=== PATIENT | female | born 1960 | race Hispanic/Latino ===

== ENCOUNTER → 2017-07-05 | Day surgery (SDC) | payer BC ==
[~2017-07-05] MED LIST: ALLERGY MEDICATION; AMOXICILLIN250 MG PO; FENTANYL CITRATE/PF 100MCG/2 ML INJ ONE; HUMALOG100 UNITS/ SQ; INSULIN REGULAR, HUMAN 100 UNIT/1 ML 3ML VIAL ONE; LEVEMIR100 UNIT/1 SQ; METFORMIN HCL500 MG PO; MIDAZOLAM HCL 2 MG/2 ML VIAL ONE; NEURONTIN100 MG PO; NOVOLOG MI100 UNIT/1; OR PHACO EYE KIT ONE; PREOP PHACO EYE KIT ONE
--- OUTSIDE RECORDS SUMMARY | 2017-07-05 09:54 | XMS REPORT | Clinical Summary ---
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 Disp. Refills Start End Date Status Date metFORMIN XR Take 500 mg by mouth 2 Active (GLUCOPHATE-XR) 500 MG 24 (two) times a day. hr tablet ibuprofen (ADVIL,MOTRIN) Take 200 mg by mouth Active 200 MG tablet every 6 (six) hours as needed for mild pain. insulin asp prt-insulin Inject 35 Units under the Active ASPART (NovoLOG 70/30) skin 2 (two) times a day 100 unit/mL (70-30) after meals. injection docusate sodium (COLACE) Take 100 mg by mouth 2 Active 100 MG capsule (two) times a day. cetirizine (ZyrTEC) 10 MG Take 10 mg by mouth Active tablet daily. atorvastatin (LIPITOR) 40 Take 40 mg by mouth every 01/15/20 Discontin MG tablet morning. 17 ued insulin NPH and regular Inject 35 Units under the 01/20/20 Discontin human (HumuLIN 70/30) 100 skin 2 (two) times a day. 17 ued unit/mL (70-30) injection aspirin (ECOTRIN) 81 MG Take 81 mg by mouth every 01/15/20 Discontin enteric coated tablet morning. 17 ued Active Problems No known active problems Encounters Date Type Specialty Care Team Description 03/30/2017 [facility] Aldo Nuno MD Encounter 03/30/2017 Anesthesia Plastic Surgery Aki Dodge MD Event 03/30/2017 Procedure Pass Plastic Surgery 03/30/2017 Surgery Plastic Surgery Aldo Nuno MD VITRECTOMY, AIR- FLUID EXCHANGE, RIGHT EYE 03/09/2017 Hospital Plastic Surgery Aldo Nuno MD Encounter 03/09/2017 Anesthesia Plastic Surgery Lisbeth Nuno MD Event 03/09/2017 Procedure Pass Plastic Surgery 03/09/2017 Surgery Plastic Surgery Aldo Nuno MD VITRECTOMY, MEMBRANE PEEL, ENDOCAUTERY, ENDOLASER, FLUID AIR EXCHANGE, 10% C3F8 GAS INJECTION, RIGHT EYE 01/19/2017 Hospital Plastic Surgery Aldo Nuno MD Encounter 01/19/2017 Anesthesia Plastic Surgery Mini Jamil MD Event 01/19/2017 Procedure Pass Plastic Surgery 01/19/2017 Surgery Plastic Surgery Aldo Nuno MD VITRECTOMY, MEMBRANECTOMY,,AIR-FLUID EXCHANGE,ENDOLASER,C3F8 GAS INJECTION(14%), LEFT EYE 01/14/2017 Pre-Admit Pre-Admission Testing Aldo Nuno MD Preop testing (Primary Testing Dx) Appointment 01/14/2017 Anesthesia Pre-Admission Testing Yessica Pearson Event 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, 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 Social History Tobacco Use Types Packs/Day Years Used Date Never Smoker Smokeless Tobacco: Never Used Alcohol Use Drinks/Week oz/Week Comments No Sex Assigned at Date Recorded Not on file Last Filed Vital Signs Vital Sign Reading Time Taken Blood Pressure 116/62 03/30/2017 12:36 PM [employer] Pulse 81 03/30/2017 12:36 PM [employer] Temperature 36.4 C (97.6 F) 03/30/2017 12:15 PM [employer] Respiratory Rate 18 03/30/2017 12:36 PM [employer] Oxygen Saturation 98% 03/30/2017 12:15 PM [employer] Inhaled Oxygen - - Concentration Weight 78.5 kg (173 lb) 03/09/2017 8:15 AM CDT Height 165.1 cm (5' 5") 03/30/2017 8:31 AM [employer] Body Mass Index 28.79 03/09/2017 8:15 AM CDT Plan of Treatment Health Maintenance Due Date Last Done Comments PAP SMEAR 10/02/1983 COLONOSCOPY 2012 MAMMOGRAM 2012 INFLUENZA VACCINE 12/14/2016 Procedures Procedure Name Priority Date/Time Associated Diagnosis Comments VITRECTOMY, AIR-FLUID 03/30/2017 Vitreous hemorrhage, EXCHANGE, RIGHT EYE 10:45 AM [employer] right eye ANESTHESIA PERIPHERAL Routine 03/09/2017 BLOCK 11:30 AM CDT Procedure Note - Varsha Jerez MD - 03/09/2017 11:29 AM CDT Peripheral Block Performed by: VARSHA JEREZ Authorized by: VARSHA JEREZ Patient Location: Pre-op Start Time: 03/09/2017 11:17 AM End Time: 03/09/2017 11:18 AM Reason for Block: at surgeon's request, block performed by Dr. Nuno Staff: Anesthesio logist: VARSHA JEREZ Performed by: Anesthesio logist Preprocedu re: patient identified , IV checked, site and side verified, risks and benefits discussed, procedure verified, surgical consent complete, patient position confirmed, monitors and equipment checked, pre-op evaluation complete and site marked Time Out Performed: 11:14 AM Peripheral Nerve Block: Patient Position: Supine Prep: alcohol swabs Monitoring : Heart rate, continuous pulse oximetry and blood pressure monitoring Block Type: Retrobulba r Laterality : Right Injection Technique: Single injection Assessment : Injection Assessment : No symptoms of intraneura l/intraven ous injection Paresthesi a Pain: None Heart Rate Change: No Block outcome: No apparent complicati ons, patient comfortabl e and patient tolerated procedure well VITRECTOMY, MEMBRANE 03/09/2017 TRD (traction retinal PEEL, ENDOCAUTERY, 9:45 AM CDT detachment), right ENDOLASER, FLUID AIR EXCHANGE, 10% C3F8 GAS INJECTION, RIGHT EYE VITRECTOMY, 01/19/2017 Retinal defect with MEMBRANECTOMY,,AIR-FLUID 1:15 PM CDT detachment, left EXCHANGE,ENDOLASER,C3F8 GAS INJECTION(14%), LEFT EYE after 07/04/2016 Results * POC glucose (03/30/2017 12:14 PM) Only the most recent of 4 results within the time period is included. Component Value Ref Range POC glucose 180 (H) 65 - 99 mg/dL Comment: [facility] Notified RN Meter ID: [id number] Meat Department Manager: ELA RIZO Specimen Performing Laboratory [facility] DEPARTMENT OF PATHOLOGY AND GENOMIC MEDICINE [address] [place] [id number] * ECG Pre/Post Op (01/14/2017 9:13 AM) Component Value Ref Range Ventricular rate 77 Atrial rate 77 WY interval 122 QRSD interval 82 QT interval 410 QTC interval 463 P axis 1 51 QRS axis 1 5 T wave axis 19 EKG impression Normal sinus rhythm-Normal ECG-In automated comparison with ECG of 15-DEC-2015 14:18,-No significant change was found- Specimen Performing Laboratory [facility] MUSE [address] [place] [id number] * Estimated GFR (01/14/2017 8:59 AM) Component Value Ref Range GFR Non Af Amer >90 mL/min/1.73 m2 GFR Af Amer >90 mL/min/1.73 m2 Comment: Chronic kidney disease: <60 mL/min/1.73m2 Kidney failure: <15 mL/min/1.73m2 The estimated GFR is calculated from the IDMS-traceable Modification of Diet in Renal Disease Equation. The accuracy of the calculation is poor when the creatinine is normal. Calculated values >90 mL/min/1.73m2 are not reported. This equation has not been validated in children (<18 years), women, the elderly (>70 years), or ethnic groups other than Caucasians and Americans. Specimen Performing Laboratory Plasma specimen [facility] DEPARTMENT OF PATHOLOGY AND GENOMIC MEDICINE [address] [place] [id number] * CBC with platelet and differential (01/14/2017 8:59 AM) Component Value Ref Range WBC 6.96 4.50 - 11.00 k/uL RBC 4.36 4.20 - 5.50 m/uL HGB 12.9 12.0 - 16.0 g/dL HCT 38.7 37.0 - 47.0 % MCV 88.8 82.0 - 100.0 fL MCH 29.6 27.0 - 34.0 pg MCHC 33.3 31.0 - 37.0 g/dL RDW - SD 43.8 37.0 - 55.0 fL MPV 14.3 (H) 8.8 - 13.2 fL Platelet count 155 150 - 400 k/uL Nucleated RBC 0.00 /100 WBC Neutrophils 47.9 39.0 - 69.0 % Lymphocytes 44.7 25.0 - 45.0 % Monocytes 4.6 0.0 - 10.0 % Eosinophils 1.7 0.0 - 5.0 % Basophils 0.7 0.0 - 1.0 % Immature granulocytes 0.4Comment: "Immature granulocytes" 0.0 - 1.0 % (promyelocytes, myelocytes, metamyelocytes) Specimen Performing Laboratory Blood [facility] DEPARTMENT OF PATHOLOGY AND GENOMIC MEDICINE [address] [place] [id number] * Hemoglobin A1c (01/14/2017 8:59 AM) Component Value Ref Range Hemoglobin A1C 9.1 (H) 4.0 - 5.6 % Comment: HbA1c cutoffs for diagnosing diabetes: 4.0% - 5.6%=normal 5.7% - 6.4%=increased risk for diabetes (prediabetes) >=6.5%=diabetes Goals for glycemic control (ADA 2016) < 7.0% Target for non adults with diabetes. More or less stringent targets may be appropriate for individual patients. <7.5% Target for Children and adolescents with type 1 diabetes. Specimen Performing Laboratory Blood [facility] DEPARTMENT OF PATHOLOGY AND GENOMIC MEDICINE [address] [place] [phone] * Basic metabolic panel (01/14/2017 8:59 AM) Component Value Ref Range Sodium 139 135 - 148 mEq/L Potassium 4.1 3.5 - 5.0 mEq/L Chloride 102 98 - 112 mEq/L CO2 22 (L) 24 - 31 mEq/L Anion gap 15 7 - 15 mEq/L Comment: Starting from August , anion gap calculation no longer incorporates potassium. Please note the change. BUN 17 6 - 20 mg/dL Creatinine 0.5 0.5 - 0.9 mg/dL Glucose 180 (H) 65 - 99 mg/dL Calcium 8.8 8.3 - 10.2 mg/dL Specimen Performing Laboratory Plasma specimen [facility] DEPARTMENT OF PATHOLOGY AND GENOMIC MEDICINE [address] [place] [id number] after 07/04/2016 Insurance Payer Benefit Subscriber ID Type Phone Address Plan / Group BCBS BCBS xxxxxxxxxxxxxxx PPO CHOICE PPO/LILLIE JONES PPO
--- NOTE | 2017-07-07 16:57 | Operative Report ---
DATE OF PROCEDURE: July 05, 2017 PREOPERATIVE DIAGNOSIS: Dense cataract of the right eye. POSTOPERATIVE DIAGNOSIS: Dense cataract of the right eye. PROCEDURE: Aborted phacoemulsification without posterior chamber interocular lens. COMPLICATIONS: None. ANESTHESIA: MAC. PROCEDURE: The patient was taken to the operating room where she had tetracaine 0.5% drops placed in the eye. The patient's eye was then prepped and draped in the usual sterile ophthalmic way. A lid speculum was placed in the eye. A side-port incision was made, and 0.2 mL of 1% lidocaine preservative free was injected in the anterior chamber. The patient had a dense cataract in the right eye, and an air bubble was placed and Trypan blue dye was used to stain the capsule. BSS solution was used to irrigate this out. 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 In the office, I was able to see the cataract; however, I was unable to get a good view of the cataract even though it had been stained. Rather than trying to complete the procedure and risk the possibility of a complication, I decided to abort the procedure, and not go through with the phacoemulsification. The patient had Maxitrol ointment and a patch and Melgar shield placed on the eye and will be seen in my office tomorrow. I explained to the patient and the family members that it was unsafe to try and continue the procedure at the present time due to the inability to see the cataract and other anatomical structures due to her corneal problem. I explained to them that I would send her to a cornea specialist and that could be treated and then later on we could attempt removing the cataract. Job#: [id number]
== END | disposition home or self-care (01) ==
LOC: OR 09:51
PROVIDERS: ATTEND Ophthalmology
DX: H25.11 Age-related nuclear cataract, right eye (principal); E11.9 Type 2 diabetes mellitus without complications; Z79.4 Long term (current) use of insulin
CPT/HCPCS: 36415; 66982; 82948; J2250

== ENCOUNTER → 2017-11-29 | Day surgery (SDC) | payer BC ==
[~2017-11-29] MED LIST changes: +FLUCONAZOLE100 MG PO; -INSULIN REGULAR, HUMAN 100 UNIT/1 ML 3ML VIAL ONE; -NOVOLOG MI100 UNIT/1; +NOVOLOG MI100 UNIT/1 SC
== END | disposition home or self-care (01) ==
LOC: OR 09:08
PROVIDERS: ATTEND Ophthalmology
DX: H25.12 Age-related nuclear cataract, left eye (principal); E11.9 Type 2 diabetes mellitus without complications; D64.9 Anemia, unspecified; Z79.4 Long term (current) use of insulin
CPT/HCPCS: 36415; 66984; 82948; J2250; V2632

== ENCOUNTER → 2018-09-08 | Day surgery (SDC) | payer BC ==
[~2018-09-08] MED LIST changes: +HYOSCYAMINE SULFATE 0.5 MG/ML INJ ONE; +LIDOCAINE HCL 2% LOCAL INJ 5 ML SDV VIAL INJ ONE; -OR PHACO EYE KIT ONE; +OTEZLA PO; -PREOP PHACO EYE KIT ONE; +PROBIOTIC & AC1 EACH PEG; +PROPOFOL IV EMULSION 10 MG/ML 50 ML VIAL ONE; +VITAMIN B12 PO; +VITAMIN D250000 UNIT PO
--- OUTSIDE RECORDS SUMMARY | 2018-09-08 06:09 | XMS REPORT | Clinical Summary ---
Author Author [facility] Organization [facility] Address Unknown Phone Unavailable Care Team Providers Care Service Car Operator Name Role Phone Ramiro Guaman MD PCP Allergies No Known Allergies Medications End Date Status Medication Sig Dispensed Refills Start Date Active metFORMIN XR Take 500 mg 0 (GLUCOPHATE-XR) 500 MG 24 by mouth 2 hr tablet (two) times a day. Active ibuprofen (ADVIL,MOTRIN) Take 200 mg 0 200 MG tablet by mouth every 6 (six) hours as needed for mild pain. Active insulin asp prt-insulin Inject 35 0 ASPART (NovoLOG 70/30) Units under 100 unit/mL (70-30) the skin 2 injection (two) times a day after meals. Active docusate sodium (COLACE) Take 100 mg 0 100 MG capsule by mouth 2 (two) times a day. Active cetirizine (ZyrTEC) 10 MG Take 10 mg by 0 tablet mouth daily. 08/20/2018 magnesium citrate Take 1 Bottle 296 mL 0 solution (296 mL 9 total) by mouth once for 1 dose. Active Problems No known active problems Encounters Care Team Description Date Type Specialty Wilton Fitzgerald MD Acute abdominal pain (Primary Dx); Constipation, unspecified constipation type; Hyperglycemia 08/20/2018 Emergency Emergency Medicine after 09/07/2017 Social History Date Tobacco Use Types Packs/Day Years Used Never Smoker Smokeless Tobacco: Never Used Alcohol Use Drinks/Week oz/Week Comments No Sex Assigned at Date Recorded Not on file Industry Job Start Date Occupation Not on file Not on file Not on file Travel End Travel History Travel Start No recent travel history available. Last Filed Vital Signs Time Taken Vital Sign Reading 08/20/2018 4:10 PM CDT Blood Pressure 134/76 08/20/2018 4:10 PM CDT Pulse 80 08/20/2018 4:10 PM CDT Temperature 36.7 C (98 F) 08/20/2018 4:10 PM CDT Respiratory Rate 16 08/20/2018 4:10 PM CDT Oxygen Saturation 98% - Inhaled Oxygen - Concentration - Weight - - Height - - Body Mass Index - Plan of Treatment Health Maintenance Due Date Last Done Comments CERVICAL CANCER SCREENING 10/02/1983 BREAST CANCER SCREENING 2012 COLON CANCER SCREENING 2012 SHINGLES VACCINES (#1) 2012 INFLUENZA VACCINE 12/14/2018 Procedures Comments Procedure Name Priority Date/Time Associated Diagnosis CT ABDOMEN PELVIS W STAT 08/20/2018 CONTRAST 3:49 PM CDT GRAM STAIN STAT 08/20/2018 3:36 PM CDT URINE CULTURE STAT 08/20/2018 3:36 PM CDT HCG QUALITATIVE, URINE STAT 08/20/2018 SCREEN 3:16 PM CDT URINALYSIS SCREEN AND STAT 08/20/2018 MICROSCOPY, WITH REFLEX 3:16 PM CDT TO CULTURE ECG 12-LEAD STAT 08/20/2018 2:42 PM CDT ESTIMATED GFR STAT 08/20/2018 2:15 PM CDT LIPASE LEVEL STAT 08/20/2018 2:15 PM CDT COMPREHENSIVE METABOLIC STAT 08/20/2018 PANEL 2:15 PM CDT HC COMPLETE BLD COUNT STAT 08/20/2018 W/AUTO DIFF 2:15 PM CDT ECG ED PRELIMINARY Routine 08/20/2018 INTERPRETATION 1:47 PM CDT after 09/07/2017 Results * CT Abdomen Pelvis W Contrast (08/20/2018 3:49 PM CDT) Narrative Performed At EXAMINATION: [facility] CT ABDOMEN PELVIS W CONTRAST CLINICAL HISTORY: Abd painunspecified TECHNIQUE: Multiple axial images of the abdomen and pelvis were obtained following intravenous administration of iodinated contrast. Sagittal and coronal computerized reformatted images were also obtained. DOSE REDUCTION: CT imaging was performed with iterative reconstruction technique and/or automated exposure control to reduce radiation dose. COMPARISON: CT abdomen and pelvis without contrast from 12/15/2015 FINDINGS: 1.Tiny subpleural noncalcified pulmonary nodule is again suggested within the right lower lobe which is unchanged when compared to 12/15/2015 and is most likely related to a prior infectious or inflammatory process. 2.The cardiac size is normal. No pericardial effusion. 3.Fatty infiltration of the liver is noted. No intrahepatic biliary duct dilatation. The main portal vein, superior mesenteric vein, and splenic veins are patent. 4.The patient is status post cholecystectomy. The common bile duct is unremarkable. 5.The pancreas, spleen, and adrenals are unremarkable. 6.Both kidneys are normal in morphology. No hydronephrosis or nephrolithiasis. The ureters and bladder are unremarkable. No bladder wall thickening. 7.The uterus is normal in morphology. The ovaries are unremarkable. 8.No dilated loops of large or small bowel. A moderate amount of stool seen throughout the colon. The patient is status post appendectomy. A very tiny periumbilical fat filled hernia is noted. The anterior abdominal wall defect measures 1.6 cm. 9.The abdominal aorta is normal in course and caliber. No significant calcified atherosclerotic disease is noted. 10.No abdominal or pelvic lymphadenopathy. 11.The bones are within normal limits. IMPRESSION: 1.No acute abnormality is seen within the abdomen or pelvis. 2.Hepatic steatosis. 3.Other incidental findings as above. [facility]-[id number] Procedure Note [facility], Radiology Results Incoming - 08/20/2018 3:57 PM CDT EXAMINATION: CT ABDOMEN PELVIS W CONTRAST CLINICAL HISTORY: Abd pain unspecified TECHNIQUE: Multiple axial images of the abdomen and pelvis were obtained following intravenous administration of iodinated contrast. Sagittal and coronal computerized reformatted images were also obtained. DOSE REDUCTION: CT imaging was performed with iterative reconstruction technique and/or automated exposure control to reduce radiation dose. COMPARISON: CT abdomen and pelvis without contrast from 12/15/2015 FINDINGS: 1. Tiny subpleural noncalcified pulmonary nodule is again suggested within the right lower lobe which is unchanged when compared to 12/15/2015 and is most likely related to a prior infectious or inflammatory process. 2. The cardiac size is normal. No pericardial effusion. 3. Fatty infiltration of the liver is noted. No intrahepatic biliary duct dilatation. The main portal vein, superior mesenteric vein, and splenic veins are patent. 4. The patient is status post cholecystectomy. The common bile duct is unremarkable. 5. The pancreas, spleen, and adrenals are unremarkable. 6. Both kidneys are normal in morphology. No hydronephrosis or nephrolithiasis. The ureters and bladder are unremarkable. No bladder wall thickening. 7. The uterus is normal in morphology. The ovaries are unremarkable. 8. No dilated loops of large or small bowel. A moderate amount of stool seen throughout the colon. The patient is status post appendectomy. A very tiny periumbilical fat filled hernia is noted. The anterior abdominal wall defect measures 1.6 cm. 9. The abdominal aorta is normal in course and caliber. No significant calcified atherosclerotic disease is noted. 10. No abdominal or pelvic lymphadenopathy. 11. The bones are within normal limits. IMPRESSION: 1. No acute abnormality is seen within the abdomen or pelvis. 2. Hepatic steatosis. 3. Other incidental findings as above. [facility]-[id number] Performing Organization Address City/[facility] [place] [place] [address] * Gram stain (08/20/2018 3:36 PM CDT) Gram stain result No WBC's or organisms seen. [facility] Comment: HOSPITAL Specimen Information Specimen Source: Urine Specimen Site: Clean catch Specimen Urine Performing Organization Address City/[facility] [place]/Zipcode Phone Number [facility] DEPARTMENT OF [address] [place] [address] PATHOLOGY AND GENOMIC MEDICINE [address] * Urine culture (08/20/2018 3:36 PM CDT) Urine culture isolate Escherichia coli [facility] >10-5 cfu/ml HOSPITAL The performance characteristics of this assay on this isolate were validated by the Microbiology Laboratory at [facility].This source has not been approved by the U.S. Food and Drug Administration.The results are not intended to be used as the sole means for clinical diagnosis or patient management.The Microbiology Laboratory is authorized under the clinical Laboratory Improvement Amendments of 1988 (CLIA-88) to perform high complexity testing. (A) Comment: Specimen Information Specimen Source: Urine Specimen Site: Clean catch Specimen Urine Antibiotic Method Susceptibility Organism Ampicillin NISHA >16 mcg/mL: Resistant Escherichia coli Amoxicillin/Clavulanate NISHA 8/4 mcg/mL: Susceptible Escherichia coli Amikacin NISHA <=4 mcg/mL: Susceptible Escherichia coli Aztreonam NISHA <=1 mcg/mL: Susceptible Escherichia coli Ceftazidime NISHA <=0.5 mcg/mL: Susceptible Escherichia coli Ciprofloxacin NISHA <=0.5 mcg/mL: Susceptible Escherichia coli Ceftriaxone NISHA <=0.5 mcg/mL: Susceptible Escherichia coli Cefuroxime Sodium NISHA <=4 mcg/mL: Susceptible Escherichia coli Cefazolin NISHA 2 mcg/mL: Susceptible Escherichia coli Cefepime NISHA <=0.5 mcg/mL: Susceptible Escherichia coli Nitrofurantoin NISHA 32 mcg/mL: Susceptible Escherichia coli Cefoxitin NISHA <=4 mcg/mL: Susceptible Escherichia coli Gentamicin NISHA <=1 mcg/mL: Susceptible Escherichia coli Imipenem NISHA <=0.25 mcg/mL: Susceptible Escherichia coli Levofloxacin NISHA <=1 mcg/mL: Susceptible Escherichia coli Meropenem NISHA <=0.125 mcg/mL: Susceptible Escherichia coli Tobramycin NISHA 1 mcg/mL: Susceptible Escherichia coli Ampicillin/Sulbactam NISHA 16/8 mcg/mL: Resistant Escherichia coli Trimethoprim/Sulfamethoxazole NISHA >2/38 mcg/mL: Resistant Escherichia coli Tetracycline NISHA 2 mcg/mL: Susceptible Escherichia coli Piperacillin/Tazobactam NISHA <=2/4 mcg/mL: Susceptible Escherichia coli Ertapenem NISHA <=0.125 mcg/mL: Susceptible Escherichia coli Tigecycline NISHA <=0.5 mcg/mL: Susceptible Escherichia coli Performing Organization Address City/State/Zipcode Phone Number [facility] DEPARTMENT OF [address] [place] [address] PATHOLOGY AND GENOMIC MEDICINE [address] * Urinalysis screen and microscopy, with reflex to culture (08/20/2018 3:16 PM CDT) Specimen site Clean catch [facility] Color, UA Straw [facility] Appearance, UA Clear [facility] Specific gravity, UA 1.010 1.001 - 1.035 [facility] pH, UA 6.0 5.0 - 8.5 [facility] Protein, UA Negative Negative [facility] Glucose, UA 3+ (A) Negative [facility] Ketones, UA Trace (A) Negative [facility] Bilirubin, UA Negative Negative [facility] Blood, UA Negative Negative [facility] Nitrite, UA Negative Negative [facility] Urobilinogen, UA <2.0 <2.0 [facility] Leukocyte esterase, UA Negative Negative [facility] Epithelial cells, UA <1 /HPF [facility] WBC, UA 5 (H) 0 - 4 /HPF [facility] RBC, UA <1 0 - 5 /HPF [facility] Bacteria, UA None seen None seen [facility] Yeast, UA None seen [facility] Yeast with pseudohyphae, None seen [facility] Specimen Urine Performing Organization Address City/State/[facility] Phone Number [facility] DEPARTMENT OF [address] [place] [address] PATHOLOGY AND GENOMIC MEDICINE [address] * hCG qualitative, urine screen (08/20/2018 3:16 PM CDT) hCG qualitative, urine NegativeComment: Sensitivity [facility] of HCG test: 25 mIU/mL HOSPITAL Specimen Urine Performing Organization Address City/[facility] [place] Phone Number [facility] DEPARTMENT OF [address] [place] [address] PATHOLOGY AND GENOMIC MEDICINE [address] * ECG 12 lead (08/20/2018 2:42 PM CDT) Ventricular rate 80 [facility] Atrial rate 80 [facility] ID interval 132 [facility] QRSD interval 76 [facility] QT interval 402 [facility] QTC interval 463 [facility] P axis 1 39 [facility] QRS axis 1 -24 [facility] T wave axis 22 [facility] EKG impression Normal sinus rhythm-Normal [facility] MUSE ECG-In automated comparison with ECG of 14-JAN-2017 09:13,-No significant change was found- Narrative Performed At Performing Organization Address City/[facility] [place] Phone Number [facility] [address] [place] [address] * Estimated GFR (08/20/2018 2:15 PM CDT) Estimated GFR >=90 mL/min/1.73 m2 [facility] Comment: HOSPITAL CatergoryUnitsInt rpretation G1 >=90 Normal or high G2 60-89Mildly decreased [id number] Mildly to moderately decreased [id number] Moderately to severely decreased G4 15-29Severely decreased G5 <15Kidney failure The eGFR was calculated using the Chronic Kidney Disease Epidemiology Collaboration (CKD-EPI) equation. Interpretation is based on recommendations of the National Kidney Foundation-Kidney Disease Outcomes Quality Initiative (NKF-KDOQI) published in 2014. Specimen Plasma specimen Performing Organization Address City/[facility] [place]/Zipcode Phone Number [facility] DEPARTMENT OF [address] [place] [address] PATHOLOGY AND GENOMIC MEDICINE [facility] [address] [place] [address] * CBC with platelet and differential (08/20/2018 2:15 PM CDT) WBC 8.15 4.50 - 11.00 k/uL [facility] RBC 4.28 4.20 - 5.50 m/uL [facility] HGB 12.3 12.0 - 16.0 g/dL [facility] HCT 38.3 37.0 - 47.0 % [facility] MCV 89.5 82.0 - 100.0 fL [facility] MCH 28.7 27.0 - 34.0 pg [facility] MCHC 32.1 31.0 - 37.0 g/dL [facility] RDW - SD 45.5 37.0 - 55.0 fL [facility] MPV 14.8 (H) 8.8 - 13.2 fL [facility] Platelet count 147 (L) 150 - 400 k/uL [facility] Nucleated RBC 0.00 /100 WBC [facility] Neutrophils 47.1 39.0 - 69.0 % [facility] Lymphocytes 46.1 (H) 25.0 - 45.0 % [facility] Monocytes 4.8 0.0 - 10.0 % [facility] Eosinophils 1.1 0.0 - 5.0 % [facility] Basophils 0.5 0.0 - 1.0 % [facility] Immature granulocytes 0.4Comment: "Immature 0.0 - 1.0 % [facility] granulocytes" (promyelocytes, HOSPITAL myelocytes, metamyelocytes) Specimen Blood Performing Organization Address City/[facility] [place] Phone Number [facility] DEPARTMENT [address] [address] PATHOLOGY AND GENOMIC MEDICINE [address] * Lipase level (08/20/2018 2:15 PM CDT) Lipase 121 (H) 13 - 60 U/L [facility] Specimen Plasma specimen Performing Organization Address [facility] [place] Phone Number [facility] [place] [address] PATHOLOGY AND GENOMIC MEDICINE [address] * Comprehensive metabolic panel (08/20/2018 2:15 PM CDT) Sodium 139 135 - 148 mEq/L [facility] Potassium 4.2 3.5 - 5.0 mEq/L [facility] Chloride 103 98 - 112 mEq/L [facility] CO2 22 (L) 24 - 31 mEq/L [facility] Anion gap 14@ANIO 7 - 15 mEq/L [facility] BUN 11 6 - 20 mg/dL [facility] Creatinine 0.52 0.50 - 0.90 mg/dL [facility] Glucose 245 (H) 65 - 99 mg/dL [facility] Calcium 9.4 8.3 - 10.2 mg/dL [facility] Protein 7.3 6.3 - 8.3 g/dL [facility] Comment: HOSPITAL Witten 4.6-7.0 g/dL 1 week 4.4-7.6 g/dL 7 months-1year 5.1-7.3 g/dL 1-2 years5.6-7 .5 g/dL >3 years6.0-8 .0 g/dL 18-150 6.3-8.3 g/dL Albumin 3.8 3.5 - 5.0 g/dL [facility] A/G ratio 1.1 0.7 - 3.8 [facility] Alkaline phosphatase 90 35 - 104 U/L [facility] AST 33 10 - 35 U/L [facility] ALT 39 5 - 50 U/L [facility] Total bilirubin <0.2 0.0 - 1.2 mg/dL [facility] Specimen Plasma specimen Performing Organization Address [facility] [place] Phone Number [facility] DEPARTMENT OF [address] [place] [address] PATHOLOGY AND GENOMIC MEDICINE [facility] [address] [place] [address] HOSPITAL * ECG ED Preliminary Interpretation - Not an Order (08/20/2018 1:47 PM CDT) Narrative Performed At Wilton Fitzgerald MD 08/29/20181:49 PM ECG ED Preliminary Interpretation - Not an Order Performed by: Marcela Golden PA-C Authorized by: Wilton Fitzgerald MD ECG reviewed by ED Physician in the absence of a house mover helper: no Previous ECG: Previous ECG:Unavailable Interpretation: Interpretation: normal Rate: ECG rate:80 ECG rate assessment: normal Rhythm: Rhythm: sinus rhythm Ectopy: Ectopy: none QRS: QRS axis:Normal Conduction: Conduction: normal ST segments: ST segments:Normal T waves: T waves: normal after 09/07/2017 Insurance Payer Benefit Subscriber ID Type Phone Address Plan / Group BCBS BCBS xxxxxxxxxxxxxxx PPO CHOICE PPO/LILLIE JONES PPO Advance Directives Patient has advance care planning documents on file. For more information, lo chan contact: Rivas Larsen [address] [place] [phone]
--- OUTSIDE RECORDS SUMMARY | 2018-09-08 06:09 | XMS REPORT ---
Author Author [facility] Address Unknown Phone Unavailable Care Team Providers Care Assistant Corporate Controller Name Role Phone Unavailable Unavailable Payers Payer Name Policy Type Policy Number Effective Date Expiration Date Problems This patient has no known problems. Allergies, Adverse Reactions, Alerts Allergy Name Allergy Type Status Severity Reaction(s) Onset Date Inactive Date Treating Clinician Comments No Known Allergies DA Active U 2013-11-22 00:00:00 Medications This patient has no known medications.
--- NOTE | 2018-09-08 07:25 | NUR ---
SPIRITUAL CARE - Pre-Surgery Assessment: Pt in bed. Pt's at bedside. Pt reported supportive attention from family and friends. Intervention: I provided pastoral presence, hospitality, and sympathetic listening. I acquainted pt with availability of maintenance of way foreman while hospitalized. Outcome: Pt expressed appreciation for visit. No need for follow up indicated at this time. TOMEKA Ornelaslain Spiritual Care Department O: [phone] Pager: [phone] ([phone] number calling from)
[2018-09-08 09:43] LABS: BASOPHILS % 0.4 % (0.0-1.0); EOSINOPHILS # (AUTO) 0.1 (0.0-0.4); EOSINOPHILS % 1.5 % (0.0-6.0); HEMATOCRIT 37.3 % (34.2-44.1); HEMOGLOBIN 12.2 g/dL (12.0-16.0); LYMPHOCYTES # (AUTO) 3.5 (1.0-3.2); LYMPHOCYTES % 46.2 % (18.0-39.1); MEAN CORPUSCULAR HEMOGLOBIN 28.8 pg (28-32); MEAN CORPUSCULAR HGB CONC 32.7 g/dL (31-35); MEAN CORPUSCULAR VOLUME 88.2 fL (81-99); MONOCYTES # (AUTO) 0.4 (0.2-0.8); MONOCYTES % 5.3 % (4.4-11.3); NEUTROPHILS # (AUTO) 3.5 (2.1-6.9); NEUTROPHILS % 46.3 % (38.7-80.0); PLATELET COUNT 177 x10e3/uL (140-360); RED BLOOD COUNT 4.23 x10e6/uL (3.6-5.1); RED CELL DISTRIBUTION WIDTH 13.8 % (11.7-14.4)
[2018-09-08 09:45] VITALS: BP 127/92
[2018-09-08 10:03] LABS: ANION GAP 15.1 mmol/L (8-16); BLOOD UREA NITROGEN 7 mg/dL (7-26); BUN/CREATININE RATIO 9 (6-25); CALCIUM 9.2 mg/dL (8.4-10.2); CARBON DIOXIDE 22 mmol/L (22-29); CHLORIDE 106 mmol/L (98-107); CREATININE, SERUM 0.75 mg/dL (0.57-1.11); EST GLOMERULAR FILTRATION RATE > 60 ML/MIN (60-); GLUCOSE 187 mg/dL (74-118); POTASSIUM 4.1 mmol/L (3.5-5.1); SODIUM 139 mmol/L (136-145)
--- NOTE | 2018-09-08 15:04 | Operative Report ---
DATE OF PROCEDURE: 09/08/2018 SURGEON: Andrew Zamorano MD PROCEDURE: Esophagogastroduodenoscopy with biopsies and colonoscopy with polypectomy. INDICATIONS FOR EGD: Upper abdominal pain, bloating. INDICATIONS FOR COLONOSCOPY: Surveillance colonoscopy, personal history of colon polyps, constipation. MEDICATION: The patient was done under MAC, please see anesthesiologist's note. PROCEDURE IN DETAIL: With the patient in left lateral decubitus position, a flexible fiberoptic Olympus gastroscope was introduced into the esophagus under direct visualization without any difficulty. There was some patchy erythema noted in distal esophagus. Minute tongue of velvety red mucosa was noted to extend proximally from the GE junction and biopsies were obtained to rule out sprue. The scope was then advanced with ease into the stomach and mucosa overlying the antrum and the body revealed some diffuse erythema and [id number] edema and biopsies were obtained and sent to stain for H pylori. The pylorus was of normal contour and shape, was intubated with ease and the scope was advanced all the way to the second portion of the duodenum. Some superficial ulcers were noted in the distal bulb and proximal second portion. Biopsies were obtained from the proximal second portion and the duodenal bulb to rule out sprue. The scope was then withdrawn back into the stomach and retroflexed and mucosa overlying the fundus and the cardia appeared to be within normal limits. The scope was then straightened out. The stomach was decompressed. The scope was subsequently withdrawn. The patient tolerated procedure well. IMPRESSION: 1. Distal esophagitis, mild. 2. Rule out Paz's esophagus. 3. Gastritis, biopsied, biopsies sent to stain for H pylori. 4. Rule out sprue. 5. Duodenal ulcers, bulb and proximal second portion, superficial without active bleeding or stigmata of recent hemorrhage. PLAN: Follow up histology. Initiate Protonix 40 mg one p.o. q.a.m. a.c. PROCEDURE IN DETAIL: The patient was then turned around. After adequate lubrication of the anal canal, a flexible fiberoptic Olympus colonoscope was inserted into the rectum with ease and advanced all the way to the cecum. The scope was then withdrawn slowly and mucosa overlying the cecum appeared to be within normal limits. A minute polyp was hot biopsied from the ascending colon. The transverse and descending appeared to be within normal limits. Two polyps were snared from the sigmoid colon and one polyp was hot biopsied from the rectum. The scope was then retroflexed into the distal rectum and small internal hemorrhoids were noted, none of which was actively bleeding. The scope was then straightened out, it was subsequently withdrawn. The patient tolerated the procedure well. IMPRESSION: 1. Ascending colon polyp, hot biopsied. 2. Sigmoid colon polyps x2, snared. 3. Rectal polyp x1, hot biopsied. 4. Internal hemorrhoids, none actively bleeding. PLAN: Follow up histology. Initiate high-fiber, low-fat diet. Initiate high-fiber supplement. Check TSH. Initiate Linzess 145 mcg one p.o. q.a.m. a.c. The patient might benefit from a followup colonoscopy in 3 years. Andrew Zamorano MD [facility]/[place]ENDIE /[id number] cc: Ramiro Guaman
== END | disposition home or self-care (01) ==
LOC: OR 06:07
PROVIDERS: ATTEND Internal Medicine Gastroenterology
DX: K59.00 Constipation, unspecified (principal); D12.2 Benign neoplasm of ascending colon; D12.5 Benign neoplasm of sigmoid colon; D12.8 Benign neoplasm of rectum; K26.9 Duodenal ulcer, unspecified as acute or chronic, without hemorrhage or perforation; K29.50 Unspecified chronic gastritis without bleeding; B96.81 Helicobacter pylori [H. pylori] as the cause of diseases classified elsewhere; K58.9 Irritable bowel syndrome, unspecified; K31.89 Other diseases of stomach and duodenum; K20.9 Esophagitis, unspecified; K64.8 Other hemorrhoids; E11.9 Type 2 diabetes mellitus without complications; G47.33 Obstructive sleep apnea (adult) (pediatric); D64.9 Anemia, unspecified; F41.9 Anxiety disorder, unspecified; Z01.810 Encounter for preprocedural cardiovascular examination; Z79.4 Long term (current) use of insulin; Z68.29 Body mass index [BMI] 29.0-29.9, adult
CPT/HCPCS: 36415; 43239; 45384; 45385; 80048; 82948; 84443; 85025; 93005; J1980; J2001; J2250; J2704; 45378

== ENCOUNTER 2024-09-14 00:13 | Emergency (ER) | payer BC, OTHER ==
[~2024-09-14] VITALS: Ht 165.1 cm; Wt 77.6 kg
[~2024-09-14 00:13] MED LIST changes: -FENTANYL CITRATE/PF 100MCG/2 ML INJ ONE; -HYOSCYAMINE SULFATE 0.5 MG/ML INJ ONE; -LIDOCAINE HCL 2% LOCAL INJ 5 ML SDV VIAL INJ ONE; -MIDAZOLAM HCL 2 MG/2 ML VIAL ONE; -PROPOFOL IV EMULSION 10 MG/ML 50 ML VIAL ONE
[2024-09-14 00:30] VITALS: TEMP 97.7
[2024-09-14] MEDS: DEXTROSE 50% SYRINGE 50 ML IV STA (01:02)
[2024-09-14] MEDS: ONDANSETRON HCL INJ 2MG/ML 2ML 2 MG/ML VIAL IV STA (01:02)
[2024-09-14 01:07] LABS: BASOPHILS # (AUTO) 0.1 (0.0-0.1); BASOPHILS % 0.5 % (0.0-1.0); EOSINOPHILS # (AUTO) 0.2 (0.0-0.4); EOSINOPHILS % 1.5 % (0.0-6.0); HEMATOCRIT 36.7 % (34.2-44.1); HEMOGLOBIN 11.8 g/dL (12.0-16.0); LYMPHOCYTES # (AUTO) 5.2 (1.0-3.2); LYMPHOCYTES % 40.3 % (18.0-39.1); MEAN CORPUSCULAR HEMOGLOBIN 27.8 pg (28-32); MEAN CORPUSCULAR HGB CONC 32.2 g/dL (31-35); MEAN CORPUSCULAR VOLUME 86.4 fL (81-99); MONOCYTES # (AUTO) 0.7 (0.2-0.8); MONOCYTES % 5.2 % (4.4-11.3); NEUTROPHILS # (AUTO) 6.8 (2.1-6.9); NEUTROPHILS % 52.1 % (38.7-80.0); PLATELET COUNT 190 x10e3/uL (140-360); RED BLOOD COUNT 4.25 x10e6/uL (3.6-5.1); RED CELL DISTRIBUTION WIDTH 14.5 % (11.7-14.4); WHITE BLOOD COUNT 12.97 x10e3/uL (4.8-10.8)
[2024-09-14 01:28] LABS: ALBUMIN/GLOBULIN RATIO 1.4 (0.8-2.0); ANION GAP 19.3 mmol/L (8-16); BILIRUBIN,TOTAL 0.2 mg/dL (0.2-1.2); CALCIUM 9.1 mg/dL (8.4-10.2); CREATININE, SERUM 0.73 mg/dL (0.57-1.11); TOTAL PROTEIN 6.9 g/dL (6.5-8.1)
[2024-09-14 01:34] LABS: POTASSIUM 3.3 mmol/L (3.5-5.1)
[2024-09-14] MEDS: ACETAMINOPHEN 325 MG TAB PO STA (02:45)
[2024-09-14 02:46] VITALS: PULSE 89; RESP 18; O2SAT 99
== END 2024-09-14 02:52 | disposition home or self-care (01) ==
LOC: ER 00:29
DX: R53.1 Weakness (principal); E11.649 Type 2 diabetes mellitus with hypoglycemia without coma; E78.5 Hyperlipidemia, unspecified; R53.81 Other malaise
CPT/HCPCS: 36415; 80053; 82948; 85025; 99283; J2405; J7799